=== PATIENT | male | born 1970 | race Two or more races ===

== ENCOUNTER 2021-06-08 23:30 | Emergency (ER) | payer MEDICAID, OTHER ==
[~2021-06-08] VITALS: Ht 175.3 cm; Wt 92.1 kg
[2021-06-09 00:38] VITALS: BP 136/100
[2021-06-09] MEDS ORDERED: KETOROLAC TROMETH 60MG/2ML VIAL IM ONE (00:45)
[2021-06-09] MEDS ORDERED: ONDANSETRON ODT 4 MG TAB PO ONE (00:45)
[2021-06-09] MEDS ORDERED: HYDROcodone-ACET 10/325MG TAB PO ONE (00:45)
== END 2021-06-09 01:38 | disposition home or self-care (01) ==
LOC: ER 23:30
DX: S20.211A Contusion of right front wall of thorax, initial encounter (principal); W11.XXXA Fall on and from ladder, initial encounter; Y93.89 Activity, other specified; Y92.89 Other specified places as the place of occurrence of the external cause; Y99.8 Other external cause status
CPT/HCPCS: 71045; 96372